=== PATIENT | female | born 1990 | race Two or more races ===

== ENCOUNTER 2021-09-23 12:24 | Emergency (ER) | payer SELFPAY ==
[~2021-09-23] VITALS: Ht 154.9 cm; Wt 80.0 kg
[2021-09-23] MEDS ORDERED: ACETAMINOPHEN 500 MG TAB PO ONE (15:00)
[2021-09-23 15:07] VITALS: BP 138/91
[2021-09-23] MEDS ORDERED: CEPH-509 PO (15:56)
[2021-09-23] MEDS ORDERED: IBUP800T27 PO (15:56)
== END 2021-09-23 16:03 | disposition home or self-care (01) ==
LOC: ER 12:24
DX: S00.83XA Contusion of other part of head, initial encounter (principal); E78.5 Hyperlipidemia, unspecified; Z88.8 Allergy status to other drugs, medicaments and biological substances; Y08.89XA Assault by other specified means, initial encounter; Y93.89 Activity, other specified; Y92.89 Other specified places as the place of occurrence of the external cause; Y99.8 Other external cause status
CPT/HCPCS: 70450